=== PATIENT | female | born 1995 | race African-American/Black ===

== ENCOUNTER 2016-09-26 19:37 | Observation (INO) | payer MEDICAID, OTHER ==
[~2016-09-26] VITALS: Ht 167.6 cm; Wt 81.6 kg
[2016-09-26] MEDS ORDERED: PREN-88 PO (19:48)
[2016-09-26] MEDS ORDERED: ACETAMINOPHEN 500MG TABLET PO NR (21:30)
== END 2016-09-26 21:52 | disposition home or self-care (01) ==
LOC: L&D 19:37
PROVIDERS: ADMIT Specialist; ATTEND Specialist
DX: O62.9 Abnormality of forces of labor, unspecified (principal); Z3A.36 36 weeks gestation of pregnancy
CPT/HCPCS: 99281; G0378

== ENCOUNTER 2016-10-01 20:39 | Observation (INO) | payer OTHER ==
[~2016-10-01] VITALS: Ht 167.6 cm; Wt 84.4 kg
[~2016-10-01 20:39] MED LIST: PREN-88 PO
== END 2016-10-01 23:20 | disposition home or self-care (01) ==
LOC: L&D 20:39
PROVIDERS: ADMIT Obstetrics & Gynecology; ATTEND Obstetrics & Gynecology
DX: O26.893 Other specified pregnancy related conditions, third trimester (principal); R10.30 Lower abdominal pain, unspecified; Z3A.37 37 weeks gestation of pregnancy
CPT/HCPCS: 99281; G0378

== ENCOUNTER 2016-10-08 16:34 | Observation (INO) | payer OTHER ==
[~2016-10-08] VITALS: Ht 167.6 cm; Wt 85.3 kg
[2016-10-08 18:16] LABS: BASOPHILS % 0.6 % (0.0-2.0); EOSINOPHILS % 0.6 % (0.0-5.0); HEMATOCRIT. 35.2 % (36.0-48.0); HEMOGLOBIN. 11.8 g/dL (12.0-16.0); LYMPHOCYTES % 19.8 % (20.0-50.0); MEAN CORPUSCULAR HEMOGLOBIN 30.7 pg (28.0-32.0); MEAN CORPUSCULAR VOLUME 91.6 fL (81.0-99.0); MONOCYTES % 5.4 % (2.0-8.0); NEUTROPHILS % 73.6 % (40.0-76.0); PLATELET 195 x1000/uL (130-400); RED BLOOD CELL COUNT 3.84 mill/uL (4.2-5.4); RED CELL DISTRIBUTION WIDTH 14.5 % (11.6-14.6)
[2016-10-08 18:23] LABS: PARTIAL THROMBOPLASTIN TIME 28.9 sec (24.0-34.0); PROTHROMBIN TIME 10.1 sec
[2016-10-08 18:27] LABS: CARBON DIOXIDE 25 mEq/L (21-32); CHLORIDE 101 mEq/L (98-107)
[2016-10-08 18:31] LABS: CLARITY URINE CLOUDY (CLEAR); COLOR URINE YELLOW (YELLOW); GLUCOSE URINE NEGATIVE (NEGATIVE); KETONES URINE 3+ (NEGATIVE); LEUKOCYTE ESTERASE URINE 2+ (NEGATIVE); NITRITE URINE NEGATIVE (NEGATIVE); OCCULT BLOOD URINE 3+ (NEGATIVE); PH URINE 6.5 (4.5-8.0); PROTEIN URINE 1+ (NEGATIVE)
[2016-10-08] MEDS ORDERED: LACTATED RINGERS 1,000 ML IV SCH (19:49)
== END 2016-10-08 21:00 | disposition home or self-care (01) ==
LOC: L&D 16:34
PROVIDERS: ADMIT Specialist; ATTEND Specialist
DX: O26.893 Other specified pregnancy related conditions, third trimester (principal); R10.9 Unspecified abdominal pain; Z3A.38 38 weeks gestation of pregnancy
CPT/HCPCS: 76815; 76818; 80053; 81001; 84550; 85025; 85384; 85610; 85730; 96360; 99281; G0378; J7120; 36415

== ENCOUNTER 2016-10-16 03:20 | Inpatient (IN) | payer OTHER ==
[2016-10-16] MEDS ORDERED: DEXT 5%/LR + PITOCIN 20UNITS/L 1,000 ML IV SCH ×2 (05:58→06:22)
[2016-10-16] MEDS ORDERED: LACTATED RINGERS 1,000 ML IV SCH (05:58)
[2016-10-16] MEDS ORDERED: NALOXONE HCL 0.4 MG/ML 1ML VIAL IM PRN (06:00)
[2016-10-16] MEDS ORDERED: LIDOCAINE HCL 1% 20ML VIAL (Pyxis) INJ INFIL SCH (06:00)
[2016-10-16] MEDS ORDERED: METHYLERGONOVINE MALEATE 0.2 MG/ML IM PRN (06:00)
[2016-10-16] MEDS ORDERED: CARBOPROST TROMETHAMINE 250 MCG/ML AMPUL IM PRN (06:00)
[2016-10-16] MEDS ORDERED: LIDOCAINE HCL 1% 20ML VIAL (Pyxis) INJ ONE (06:02)
[2016-10-16] MEDS ORDERED: DEXT 5%/LR + PITOCIN 20UNITS/L 1,000 ML IV ONE (06:02)
[2016-10-16] MEDS ORDERED: IBUPROFEN 400MG TABLET PO PRN (06:30)
[2016-10-16] MEDS ORDERED: IBUPROFEN 800MG TABLET PO PRN (06:30)
[2016-10-16] MEDS ORDERED: LANOLIN OINT 0.25 GM TUBE TOP PRN (06:30)
[2016-10-16] MEDS ORDERED: RHO(D) IMMUNE GLOBULIN 300 MCG/SYR IM PRN (06:30)
[2016-10-16 08:00] LABS: BASOPHILS % 0.9 % (0.0-2.0); EOSINOPHILS % 0.6 % (0.0-5.0); HEMATOCRIT. 35.7 % (36.0-48.0); HEMOGLOBIN. 11.9 g/dL (12.0-16.0); LYMPHOCYTES % 28.3 % (20.0-50.0); MEAN CORPUSCULAR HEMOGLOBIN 30.8 pg (28.0-32.0); MEAN CORPUSCULAR VOLUME 92.5 fL (81.0-99.0); MEAN PLATELET VOLUME 10.6 fl (7.4-10.4); MONOCYTES % 8.4 % (2.0-8.0); NEUTROPHILS % 61.8 % (40.0-76.0); PLATELET 197 x1000/uL (130-400); RED BLOOD CELL COUNT 3.85 mill/uL (4.2-5.4); RED CELL DISTRIBUTION WIDTH 14.9 % (11.6-14.6)
[2016-10-16 08:06] LABS: PARTIAL THROMBOPLASTIN TIME 30.3 sec (24.0-34.0); PROTHROMBIN TIME 10.2 sec
[2016-10-16 08:40] VITALS: BP 125/69
[2016-10-16 09:20] LABS: RUBELLA IGG 10.4 IU/mL (4.99-10)
[2016-10-16 09:21] LABS: HEPATITIS B SURFACE ANTIGEN NEGATIVE
[2016-10-16 16:31] VITALS: BP 116/58
[2016-10-16 20:00] VITALS: BP 111/54
[2016-10-17 06:40] LABS: BASOPHILS % 0.4 % (0.0-2.0); EOSINOPHILS % 0.9 % (0.0-5.0); HEMATOCRIT. 29.5 % (36.0-48.0); HEMOGLOBIN. 9.8 g/dL (12.0-16.0); LYMPHOCYTES % 25.2 % (20.0-50.0); MEAN CORPUSCULAR HEMOGLOBIN 30.5 pg (28.0-32.0); MEAN CORPUSCULAR VOLUME 91.4 fL (81.0-99.0); MEAN PLATELET VOLUME 9.7 fl (7.4-10.4); MONOCYTES % 7.2 % (2.0-8.0); NEUTROPHILS % 66.3 % (40.0-76.0); PLATELET 183 x1000/uL (130-400); RED BLOOD CELL COUNT 3.22 mill/uL (4.2-5.4); RED CELL DISTRIBUTION WIDTH 14.8 % (11.6-14.6)
[2016-10-17 07:49] VITALS: BP 118/55
[2016-10-17] MEDS: PRENATAL VIT/FE FUMARATE/FA TABLET PO SCH (08:26)
[2016-10-17 16:22] VITALS: BP 122/60
[2016-10-17 20:30] VITALS: BP 111/60
[2016-10-18 06:46] LABS: HEMATOCRIT 29.3 % (36.0-48.0); HEMOGLOBIN 10.1 g/dL (12.0-16.0); MEAN CORPUSCULAR HEMOGLOBIN 31.4 pg (28.0-32.0); MEAN CORPUSCULAR VOLUME 91.5 fL (81.0-99.0); PLATELET 214 x1000/uL (130-400); RED BLOOD CELL COUNT 3.21 mill/uL (4.2-5.4); RED CELL DISTRIBUTION WIDTH 14.9 % (11.6-14.6)
[2016-10-18 08:42] VITALS: BP 145/72
[2016-10-18] MEDS: PRENATAL VIT/FE FUMARATE/FA TABLET PO SCH (09:03)
== END 2016-10-18 11:15 | disposition home or self-care (01) | DRG 560 ==
LOC: L&D 03:20 → OBSVTOIN 03:20 → 7EST PP/OB 12:20
PROVIDERS: ADMIT Specialist; ATTEND Specialist
PROC: 0W8NXZZ Division of Female Perineum, External Approach (ICD-10-PCS; 2016-10-16)
PROC: 10907ZC Drainage of Amniotic Fluid, Therapeutic from Products of Conception, Via Natural or Artificial Opening (ICD-10-PCS; 2016-10-16)
PROC: 10E0XZZ Delivery of Products of Conception, External Approach (ICD-10-PCS; principal; 2016-10-16 05:56)
DX: O69.81X0 Labor and delivery complicated by cord around neck, without compression, not applicable or unspecified (principal); D62 Acute posthemorrhagic anemia; O99.824 Streptococcus B carrier state complicating childbirth; Z37.0 Single live birth; Z3A.39 39 weeks gestation of pregnancy
CPT/HCPCS: 36415; 85025; 85027; 85610; 85730; 86592; 86703; 86762; 86850; 86900; 87340; J2590; J3490; J7120

== ENCOUNTER 2019-03-19 16:40 | Emergency (ER) | payer OTHER ==
[~2019-03-19] VITALS: Ht 172.7 cm; Wt 91.0 kg
[2019-03-19 17:10] VITALS: BP 131/88
== END 2019-03-19 23:09 | disposition left against medical advice (07) ==
LOC: ER 16:40
DX: R51 Headache (principal); Z53.21 Procedure and treatment not carried out due to patient leaving prior to being seen by health care provider

== ENCOUNTER 2020-11-13 19:47 | Emergency (ER) | payer OTHER ==
[~2020-11-13] VITALS: Ht 170.2 cm; Wt 82.3 kg
[2020-11-13 20:05] VITALS: BP 141/72
[2020-11-13] MEDS ORDERED: IBUPROFEN 600MG TABLET PO STA (20:51)
[2020-11-13 22:38] LABS: CLARITY URINE CLOUDY (CLEAR); COLOR URINE YELLOW (YELLOW); KETONES URINE NEGATIVE (NEGATIVE); LEUKOCYTE ESTERASE URINE 3+ (NEGATIVE); NITRITE URINE POSITIVE (NEGATIVE); OCCULT BLOOD URINE 1+ (NEGATIVE); PROTEIN URINE 1+ (NEGATIVE)
[2020-11-13] MEDS ORDERED: CEFP200T13 MT (23:12)
[2020-11-13] MEDS ORDERED: IBUP-2028 MT (23:13)
== END 2020-11-13 23:55 | disposition home or self-care (01) ==
LOC: ER 19:47
DX: N10 Acute pyelonephritis (principal)
CPT/HCPCS: 81003; 81025; 87077; 87186; 99283